=== PATIENT | female | born 1965 | race African-American/Black ===

== ENCOUNTER 2022-10-16 21:44 | Emergency (ER) | payer MEDICAID ==
[~2022-10-16] VITALS: Ht 158.8 cm; Wt 66.8 kg
[~2022-10-16 21:44] MED LIST: ALBU6.7H3 INH; LISI10TA26 MT; SERT25TA74 MT; SIMV-343 MT; VARE1TAB24
[2022-10-16 22:33] VITALS: BP 113/86; PULSE 80; RESP 16; TEMP 97.9; O2SAT 100
[2022-10-18] MEDS ORDERED: NAPR-681 MT (02:02)
== END 2022-10-17 ==
LOC: ER 10-17 00:21
DX: Z53.21 Procedure and treatment not carried out due to patient leaving prior to being seen by health care provider (principal)
CPT/HCPCS: 99281

== ENCOUNTER 2022-10-17 22:35 | Emergency (ER) | payer MEDICAID ==
[~2022-10-17] VITALS: Ht 160 cm; Wt 66.6 kg
[2022-10-17 23:00] VITALS: BP 159/101; O2SAT 100
[2022-10-18] MEDS ORDERED: LIDOCAINE HCL/PF 1% 10 MG/ML 5ML VIAL INFIL ONE (00:15)
[2022-10-18] MEDS ORDERED: BACITRACIN ZINC OINT UDPKT TOP ONE (00:15)
[2022-10-18] MEDS ORDERED: NAPR-681 MT (02:02)
[2022-10-18 02:59] VITALS: PULSE 86; RESP 18; TEMP 98.5
== END 2022-10-18 03:00 | disposition home or self-care (01) ==
LOC: ER 22:35
DX: M79.674 Pain in right toe(s) (principal); Z98.890 Other specified postprocedural states; E78.00 Pure hypercholesterolemia, unspecified; I10 Essential (primary) hypertension
CPT/HCPCS: 99284; 73630; Z7610 ×3; 99283

== ENCOUNTER 2023-06-05 19:46 | Emergency (ER) | payer MEDICAID ==
[~2023-06-05] VITALS: Ht 167.6 cm; Wt 70.0 kg
[~2023-06-05 19:46] MED LIST changes: +NAPR-681 MT
[2023-06-05 19:58] VITALS: O2SAT 98
[2023-06-05 21:03] LABS: BASOPHILS % 1.4 % (0.0-2.0); EOSINOPHILS % 1.9 % (0.0-5.0); HEMATOCRIT. 41.7 % (36.0-48.0); HEMOGLOBIN. 13.8 g/dL (12.0-16.0); LYMPHOCYTES % 56.2 % (20.0-50.0); MEAN CORPUSCULAR VOLUME 88.1 fL (81.0-99.0); MEAN PLATELET VOLUME 7.3 fl (7.4-10.4); MONOCYTES % 5.3 % (2.0-8.0); NEUTROPHILS % 35.2 % (40.0-76.0); PLATELET 382 x1000/uL (130-400); RED BLOOD CELL COUNT 4.74 mill/uL (4.2-5.4); RED CELL DISTRIBUTION WIDTH 16.8 % (11.6-14.6); WHITE BLOOD COUNT 7.5 x1000/uL (4.5-11.0)
[2023-06-05 21:18] LABS: ACETAMINOPHEN < 2 ug/mL (10-30); ALANINE AMINOTRANSFERASE 24 IU/L (10-49); ALBUMIN 4.7 g/dL (3.2-4.8); ASPARTATE AMINOTRANSFERASE 42 IU/L (<34); BILIRUBIN TOTAL 0.5 mg/dL (0.1-1.0); CARBON DIOXIDE 30 mEq/L (21-32); CHLORIDE 110 mEq/L (98-107); ETHANOL BLOOD 291 mg/dL (<10); GLUCOSE 98 mg/dL (70-105); POTASSIUM 4.1 mEq/L (3.5-5.1); PROTEIN TOTAL 7.7 g/dL (6.0-8.3); SODIUM 146 mEq/L (136-145); UREA NITROGEN BLOOD 12 mg/dL (9-23)
[2023-06-05 21:41] LABS: CLARITY URINE TURBID (CLEAR); COLOR URINE YELLOW (YELLOW); GLUCOSE URINE NEGATIVE (NEGATIVE); KETONES URINE NEGATIVE (NEGATIVE); LEUKOCYTE ESTERASE URINE TRACE (NEGATIVE); NITRITE URINE NEGATIVE (NEGATIVE); OCCULT BLOOD URINE 1+ (NEGATIVE); PROTEIN URINE TRACE (NEGATIVE); SPECIFIC GRAVITY URINE 1.013 (1.005-1.030)
[2023-06-05] MEDS: ZIPRASIDONE MESYLATE 20MG/VIAL IM ONE (21:45)
[2023-06-05 21:52] LABS: *AMPHETAMINES SCREEN URINE NEGATIVE (NEGATIVE); *BARBITURATES SCREEN URINE NEGATIVE (NEGATIVE); *BENZODIAZEPINES SCREEN URINE NEGATIVE (NEGATIVE); *COCAINE SCREEN URINE NEGATIVE (NEGATIVE); CANNABINOID URINE SCREEN PRESUMPTIVE POSITIVE (NEGATIVE); ECSTASY MDMA SCREEN URINE NEGATIVE (NEGATIVE); METHADONE URINE SCREEN Neg (NEGATIVE); OPIATES URINE SCREEN NEGATIVE (NEGATIVE); PHENCYCLIDINE URINE SCREEN NEGATIVE (NEGATIVE)
[2023-06-05] MEDS: LORAZEPAM 2MG/ML INJ IV ONE (21:58)
[2023-06-05 22:04] LABS: TROPONIN I HIGH SENSITIVITY 48 ng/L (3.0-34)
[2023-06-05 22:27] LABS: BACTERIA URINE 3+; SQUAMOUS EPITHELIAL CELL URINE 2+ /lpf (RARE/1+)
[2023-06-05 22:28] LABS: WBC URINE 0-2 /hpf (0-2)
[2023-06-05] MEDS: ASPIRIN 81MG TABLET PO ONE (23:42)
[2023-06-06 00:24] LABS: TROPONIN I HIGH SENSITIVITY 48 ng/L (3.0-34)
[2023-06-06] MEDS ORDERED: CLONIDINE 0.1MG TABLET PO PRN (01:15)
[2023-06-06] MEDS ORDERED: ACETAMINOPHEN 325MG TABLET PO PRN ×2 (01:15)
[2023-06-06] MEDS: MVI, ADULT NO.1 10 ML, FOLIC ACID 1 MG, THIAMINE HCL 100 MG in SODIUM CHLORIDE 0.9% 1,0... IV NR (03:00)
[2023-06-06] MEDS: NICOTINE 21MG PATCH TD SCH (11:33)
[2023-06-06] MEDS: MAGNESIUM/ALUMINUM HYDROXIDE/SIMETHICONE 30ML UDC PO PRN (11:33)
[2023-06-06] MEDS: ONDANSETRON HCL 4MG/2ML INJ IV PRN (11:33)
[2023-06-06] MEDS: AMLODIPINE 5MG TABLET PO SCH (11:54)
[2023-06-06] MEDS: SERTRALINE HCL 25MG TABLET PO SCH (11:54)
[2023-06-06 15:27] LABS: TROPONIN I HIGH SENSITIVITY 47 ng/L (3.0-34)
[2023-06-06] MEDS: FAMOTIDINE 20MG TABLET PO SCH (21:30)
[2023-06-07] MEDS: ACETAMINOPHEN 325MG TABLET PO NR (03:30)
[2023-06-07 18:42] VITALS: BP 153/95; PULSE 73; RESP 18; TEMP 98.5
== END 2023-06-07 18:58 | disposition admitted as inpatient to this hospital (09) ==
LOC: ER 19:46 → CANBEDREQ 06-07 18:10 → ER 06-07 18:58
DX: R45.851 Suicidal ideations (principal); R94.31 Abnormal electrocardiogram [ECG] [EKG]; R79.89 Other specified abnormal findings of blood chemistry; Z20.822 Contact with and (suspected) exposure to COVID-19
CPT/HCPCS: 80053; 80305; 81003; 80307; 80329; 80320; 85025; 36415; 84484; 71045; 93005; 96372; 99285; 87426; 96365; 96375; Z7610 ×3; J3486; J3490 ×2; J2405; J3411; J7030; G0480

== ENCOUNTER 2023-12-01 23:53 | Emergency (ER) | payer MEDICAID ==
[~2023-12-01] VITALS: Ht 172.7 cm; Wt 66.0 kg
[2023-12-01 23:54] VITALS: O2SAT 98
[2023-12-02] MEDS ORDERED: ALBUTEROL (0.083%) 2.5MG/3ML NEB HHN STA (00:02)
[2023-12-02] MEDS ORDERED: IPRATROPIUM BROMIDE (0.02%) 0.5MG/2.5ML NEB HHN STA (00:02)
[2023-12-02 00:10] VITALS: RESP 38
[2023-12-02] MEDS: GUAIFENESIN 600MG ER TABLET PO ONE (00:15)
[2023-12-02] MEDS ORDERED: DEXAMETHASONE 10 MG/ML VIAL IV ONE (00:15)
[2023-12-02 00:32] LABS: HEMATOCRIT. 39.6 % (36.0-48.0); HEMOGLOBIN. 13.3 g/dL (12.0-16.0); MEAN CORPUSCULAR HEMOGLOBIN 29.9 pg (28.0-32.0); MEAN CORPUSCULAR HGB CONC 33.7 g/dL (31.0-37.0); MEAN CORPUSCULAR VOLUME 88.9 fL (81.0-99.0); MEAN PLATELET VOLUME 7.1 fl (7.4-10.4); PLATELET 421 x1000/uL (130-400); RED BLOOD CELL COUNT 4.46 mill/uL (4.2-5.4); RED CELL DISTRIBUTION WIDTH 16.5 % (11.6-14.6); WHITE BLOOD COUNT 6.2 x1000/uL (4.5-11.0)
[2023-12-02 00:38] LABS: CHLORIDE 107 mEq/L (98-107); POTASSIUM 3.2 mEq/L (3.5-5.1); SODIUM 141 mEq/L (136-145)
[2023-12-02 00:39] LABS: CARBON DIOXIDE 20 mEq/L (21-32); DIFFERENTIAL COMMENT 1
[2023-12-02 00:40] LABS: CALCIUM 8.9 mg/dL (8.7-10.4)
[2023-12-02 00:44] LABS: CREATININE 0.8 mg/dL (0.6-1.0); GLUCOSE 78 mg/dL (70-105); UREA NITROGEN BLOOD 12 mg/dL (9-23)
[2023-12-02 00:45] LABS: ETHANOL BLOOD 274 mg/dL (<10)
[2023-12-02] MEDS: DEXAMETHASONE 10 MG/ML VIAL IV NR (00:45)
[2023-12-02 00:52] LABS: LACTIC ACID 4.4 mmol/L (0.4-2.0)
[2023-12-02 00:53] LABS: TROPONIN I HIGH SENSITIVITY 55 ng/L (3.0-34)
[2023-12-02] MEDS: ACETAMINOPHEN 1000MG/100ML 100 ML IV ONE (01:30)
[2023-12-02] MEDS: MAGNESIUM 2 G PREMIX 50 ML IV ONE (02:36)
[2023-12-02] MEDS: ENOXAPARIN 60MG/0.6ML SYR SUBCUT NR (03:49)
[2023-12-02] MEDS: ASPIRIN 325MG EC TABLET PO NR (03:49)
[2023-12-02 04:16] LABS: TROPONIN I HIGH SENSITIVITY 51 ng/L (3.0-34)
[2023-12-02 05:05] LABS: PLATELET ESTIMATE SLIGHTLY INCREASED
[2023-12-02 05:11] VITALS: BP 129/75; PULSE 68; RESP 16; TEMP 36.78072; O2SAT 99
== END 2023-12-02 07:00 | disposition short-term general hospital (02) ==
LOC: ER 23:53 → CANBEDREQ 12-02 07:15
DX: U07.1 COVID-19 (principal); R79.89 Other specified abnormal findings of blood chemistry; J96.90 Respiratory failure, unspecified, unspecified whether with hypoxia or hypercapnia; F10.129 Alcohol abuse with intoxication, unspecified; F32.9 Major depressive disorder, single episode, unspecified; E78.00 Pure hypercholesterolemia, unspecified; I10 Essential (primary) hypertension; F20.9 Schizophrenia, unspecified; F17.210 Nicotine dependence, cigarettes, uncomplicated; F12.10 Cannabis abuse, uncomplicated; Z79.899 Other long term (current) drug therapy; Y90.8 Blood alcohol level of 240 mg/100 ml or more
CPT/HCPCS: 71045; 93005; 99285; 80048; 80320; 83880; 83605; 83690; 85025; 87040; 84484; 36415; 84145; 94660; 96367; 96365; 96372; 96375; 87426; J1100; J1650; J3475; G0480; J0131